=== PATIENT | female | born 1955 | race Caucasian/White ===

== ENCOUNTER → 2024-01-13 14:23 | Outpatient (REF) | payer MEDICARE, OTHER, SELFPAY | LOC: WDC 14:23 | PROVIDERS: ATTENDING PHYSICIAN Physician Assistant Medical | DX: Z12.31 Encounter for screening mammogram for malignant neoplasm of breast (principal) | CPT/HCPCS: 77063; 77067 ==

== ENCOUNTER → 2024-08-04 06:59 | Outpatient (REF) | payer MEDICARE, OTHER, SELFPAY | LOC: RAD 06:59 | PROVIDERS: ATTENDING PHYSICIAN Physician Assistant Medical | DX: Z87.891 Personal history of nicotine dependence (principal) | CPT/HCPCS: 76770 ==

== ENCOUNTER → 2024-08-07 06:44 | Outpatient (REF) | payer MEDICARE, OTHER, SELFPAY | LOC: MRI 06:44 | PROVIDERS: ATTENDING PHYSICIAN Pain Medicine Interventional Pain Medicine; FAMILY PHYSICIAN Physician Assistant Medical | DX: M54.16 Radiculopathy, lumbar region (principal) | CPT/HCPCS: 72148 ==

== ENCOUNTER → 2024-09-02 10:01 | Outpatient (REF) | payer MEDICARE, OTHER, SELFPAY | LOC: HWRAD 10:01 | PROVIDERS: ATTENDING PHYSICIAN Physician Assistant Medical | DX: N28.1 Cyst of kidney, acquired (principal); N94.9 Unspecified condition associated with female genital organs and menstrual cycle; I70.90 Unspecified atherosclerosis | CPT/HCPCS: 76775; 76856 ==

== ENCOUNTER → 2024-10-22 07:54 | Outpatient (REF) | payer MEDICARE, OTHER, SELFPAY | LOC: RAD 07:54 | PROVIDERS: ATTENDING PHYSICIAN Physician Assistant Medical | DX: K76.9 Liver disease, unspecified (principal); M25.472 Effusion, left ankle; I70.90 Unspecified atherosclerosis; N94.9 Unspecified condition associated with female genital organs and menstrual cycle; M81.0 Age-related osteoporosis without current pathological fracture; F10.21 Alcohol dependence, in remission; I87.2 Venous insufficiency (chronic) (peripheral) | CPT/HCPCS: 93971 ==

== ENCOUNTER → 2024-11-09 15:30 | Outpatient (REF) | payer MEDICARE, OTHER, SELFPAY | LOC: MRI 3T 15:30 | PROVIDERS: ATTENDING PHYSICIAN Physician Assistant Medical | DX: K76.9 Liver disease, unspecified (principal) | CPT/HCPCS: 74183; A9575 ==

== ENCOUNTER → 2025-01-15 13:22 | Outpatient (REF) | payer MEDICARE, OTHER, SELFPAY | LOC: WDC 13:22 | PROVIDERS: ATTENDING PHYSICIAN Physician Assistant Medical | DX: Z12.31 Encounter for screening mammogram for malignant neoplasm of breast (principal) | CPT/HCPCS: 77063; 77067 ==

== ENCOUNTER → 2025-02-15 12:48 | Outpatient (REF) | payer MEDICARE, OTHER, SELFPAY | LOC: RAD 12:48 | PROVIDERS: ATTENDING PHYSICIAN Internal Medicine Endocrinology, Diabetes & Metabolism; FAMILY PHYSICIAN Physician Assistant Medical | DX: M81.0 Age-related osteoporosis without current pathological fracture (principal) | CPT/HCPCS: 77080; 77081 ==